=== PATIENT | male | born 1960 | race African-American/Black ===

== ENCOUNTER 2021-06-06 10:27 | Emergency (ER) | payer MEDICAID ==
[~2021-06-06] VITALS: Ht 185.4 cm; Wt 109.0 kg
[2021-06-06 10:40] VITALS: BP 139/85
[2021-06-06] MEDS ORDERED: TOPUD MT (11:28)
== END 2021-06-06 11:59 | disposition home or self-care (01) ==
LOC: ER 10:27
DX: M79.675 Pain in left toe(s) (principal); I10 Essential (primary) hypertension; W22.09XA Striking against other stationary object, initial encounter; Y93.89 Activity, other specified; Y92.9 Unspecified place or not applicable
CPT/HCPCS: 73630; 99283; Z7610